=== PATIENT | male | born 1975 | race Caucasian/White ===

== ENCOUNTER → 2018-04-25 11:42 | Outpatient (CLI) | payer BC, SELFPAY ==
--- NOTE | 2018-04-25 11:47 | RAD_ITS ---
STUDY: X-RAY - CERVICAL SPINE REASON FOR EXAM: Male, 43 years old. Right side neck pain. TECHNIQUE: 5 view(s) of the cervical spine were obtained. COMPARISON: None FINDINGS: Normal anterior atlantoaxial articulation. Normal odontoid process. Mild cervical kyphosis. Normal vertebral bodies and endplates. Normal disc space heights. Limited visualization of the intervertebral neural foramina due to suboptimal oblique positioning. The soft tissue structures are unremarkable. RAD/Cerv Spine 4 or 5 Views IMPRESSION: 1. Normal x-ray examination of the visualized cervical spine. 2. Limited visualization of the bilateral intervertebral neural foramina due to suboptimal oblique positioning. Electronically Signed: Jeff Ramires MD at 13:46 EDT , Service support ,
== END ==
PROVIDERS: Family Provider Internal Medicine; PCP Internal Medicine; Referring Provider Nurse Practitioner Gerontology; Visit Provider Nurse Practitioner Gerontology
DX: M54.12 Radiculopathy, cervical region (principal)
CPT/HCPCS: 72050

== ENCOUNTER 2018-04-28 12:59 | Outpatient (RCR) | payer BC, SELFPAY ==
--- NOTE | 2018-10-20 16:53 | HP.PT.NRP ---
HP - Discharge Summary (1) - Patient Information DAVIDA FARELY was seen in my office for initial evaluation on 04/28/18. The following Plan of Care was established for this patient: - Anticipated Interventions Patient/Client Instruction: Educate patient on: Condition, Plan of Care For the Purpose of:: To increase ROM, To improve muscle performance and motor function, To increase flexibility/ROM, To improve tolerance to ADL's Therapeutic Exercise to Include: Strength training, Power training, Endurance training, Postural training, Flexibilty training, Passive ROM, Active ROM, Scapular Strength/Stabilization For the Purpose of:: To decrease pain, To increase ROM, To improve muscle performance and motor function, To increase tolerance to activity/condition/position, To improve ability of physical actions for home/community/work/leisure, To increase flexibility/ROM, To improve endurance TENS: Yes Cryotherapy (ice pack, ice massage): Yes Thermo therapy (hot pack): Yes Ultrasound (thermal/non thermal): Yes For the Purpose of:: To decrease pain This patient was last seen in our office . Pertinent comments regarding their Physical therapy will appear below: Patient has not attended PT in over 3 months and is appropriate for d/c at this time. Return to MD for further evaluation. At this point I will be discontinuing this patient from physical therapy. I would be happy to see this patient again in the future if found appropriate by the physician. Thank you! Juju Moran DPT
== END 2018-04-28 19:00 | disposition home or self-care (01) ==
LOC: PT 12:59
PROVIDERS: Family Provider Internal Medicine; PCP Internal Medicine; Referring Provider Nurse Practitioner Gerontology; Visit Provider Nurse Practitioner Gerontology
DX: M54.12 Radiculopathy, cervical region (principal)
CPT/HCPCS: 97110; 97161